=== PATIENT | male | born 1945 | race Caucasian/White ===

== ENCOUNTER → 2019-04-03 16:38 | Outpatient (CLI) | payer MEDICARE, SELFPAY ==
--- NOTE | 2019-04-03 | DI.MRI.S_ITS ---
PROCEDURE: MR LUMBAR SPINE WO CON INDICATIONS: CHRONIC LOW BACK PAIN TECHNIQUE: Noncontrast sagittal T1 spin echo and T2 fast echo, sagittal STIR, axial T1 and T2 fast spin echo through the lumbar spine. In cases with scoliosis, additional coronal T2 fast spin echo may be performed. COMPARISON: [facility], , L-SPINE WITHOUT CONTRAST, 06/26/2017, 18:01. FINDINGS: Image quality: Excellent. Alignment and Curvature: Levocurvature of the lumbar spine as before. Straightening of the normal lordotic curvature. Bone Marrow: Multilevel degenerative endplate sclerosis and spurring. Diffuse facet arthropathy. No evidence of acute compression fracture Spinal Cord: Conus medullaris terminates at the L1-L2 level. Visualized cord demonstrates normal signal and size. Paraspinous Soft Tissues: Bilateral T2 hyperintense resume renal cysts although technically nonspecific. Minimal aneurysmal ectasia of the visualized aorta measuring 2.3 cm. T12-L1: Mild broad-based posterior disc bulge and bilateral facet arthropathy. Dorsal epidural lipomatosis also noted. Mild/moderate canal narrowing which appears grossly unchanged. Partial effacement of both lateral recesses with bilaterally symmetric appearance. Mild left and moderate to severe right foraminal stenoses appear grossly unchanged minimally progressed. There is right-sided nerve root compression L1-L2: Bilateral facet arthropathy no definite central canal stenosis. Partial effacement of the right lateral recess which appears asymmetric although unchanged. Moderate right foraminal narrowing. No left foraminal stenosis. No interval change L2-L3: Minimal dorsal epidural lipomatosis and bilateral facet arthropathy. No high-grade central canal narrowing. Mild partial effacement of the right lateral recess which appears asymmetric although grossly unchanged since prior study. Mild right and mild/moderate left bilateral foraminal stenoses, unchanged L3-L4: Broad-based posterior disc bulge and superimposed left paracentral disc protrusion. Bilateral facet arthropathy. Moderate central canal narrowing. Complete effacement of the left lateral recess, and near complete effacement of the right lateral recess although this is grossly unchanged. Moderate to severe right foraminal stenosis with nerve root compression in the cephalocaudad dimension. Moderate left foraminal narrowing of the perineural fat appears grossly preserved. L4-L5: Bilateral facet arthropathy. No central canal narrowing although there is dorsal epidural lipomatosis. Partial effacement of both lateral recesses although mildly asymmetric, left slightly greater than right. Mild to moderate right foraminal narrowing. Severe left foraminal stenosis with nerve root compression as before. L5-S1: Bilateral facet arthropathy. Minimal broad-based posterior disc bulge. Dorsal epidural lipomatosis and mild central canal narrowing. Bilateral partial effacement of both lateral recesses although mildly asymmetric, left greater than right. However, the appearance is grossly unchanged. Severe left foraminal stenosis as before with nerve root compression. Moderate right foraminal stenosis which is unchanged. IMPRESSION: Diffuse spondylosis and facet arthropathy with severe levoscoliosis of lumbar spine as above. Multilevel canal and foraminal stenoses appear grossly unchanged as , detailed above by spinal level. Dictated by: Mark Coronel M.D. on 04/04/2019 at 8:47 Approved by: Mark Coronel M.D. on 04/04/2019 at 9:02
== END ==
PROVIDERS: Family Provider Family Medicine; PCP Family Medicine; Visit Provider Physical Medicine & Rehabilitation Pain Medicine
DX: M54.5 Low back pain (principal); G89.29 Other chronic pain; M47.816 Spondylosis without myelopathy or radiculopathy, lumbar region; M47.817 Spondylosis without myelopathy or radiculopathy, lumbosacral region; M48.061 Spinal stenosis, lumbar region without neurogenic claudication; M48.07 Spinal stenosis, lumbosacral region; M41.86 Other forms of scoliosis, lumbar region
CPT/HCPCS: 72148